=== PATIENT | male | born 1995 | race Two or more races ===

== ENCOUNTER 2019-11-04 16:40 | Emergency (ER) | payer SELFPAY ==
[~2019-11-04] VITALS: Ht 172.7 cm; Wt 104.3 kg
[2019-11-04 17:01] VITALS: BP 112/74
[2019-11-04] MEDS ORDERED: TETANUS-DIPTH-ACEL PERTUSSIS 0.5ML SYR Tdap IM ONE (17:30)
== END 2019-11-04 17:45 | disposition home or self-care (01) ==
LOC: ER 16:40
DX: S61.412A Laceration without foreign body of left hand, initial encounter (principal); W25.XXXA Contact with sharp glass, initial encounter; Y93.89 Activity, other specified; Y92.89 Other specified places as the place of occurrence of the external cause; Y99.8 Other external cause status
CPT/HCPCS: 12001; 90471; 90715

== ENCOUNTER 2019-12-02 20:00 | Emergency (ER) | payer SELFPAY ==
[~2019-12-02] VITALS: Ht 172.7 cm; Wt 99.8 kg
[2019-12-02 21:47] LABS: Basophils # (auto) 0 10 ^3/uL (0-0.2); Basophils % (auto) 0.5 % (0.0-2.0); Eosinophils # (auto) 0 10 ^3/uL (0-0.8); Eosinophils % (auto) 0.6 % (0.0-7.0); Hematocrit 47.1 % (41.0-53.0); Hemoglobin 15.9 g/dL (13.5-17.5); Lymphocytes # (auto) 3.1 10 ^3/uL (0.4-5.4); Lymphocytes % (auto) 47.5 % (10.0-50.0); Mean Corpuscular Hemoglobin 28.3 pg (28.0-32.0); Mean Corpuscular Hgb Conc. 33.7 g/dL (32.0-36.0); Mean Corpuscular Volume 84.1 fL (80.0-100.0); Monocytes # (auto) 0.8 10 ^3/uL (0-1.3); Monocytes % (auto) 11.8 % (0.0-12.0); Neutrophils # (auto) 2.6 10 ^3/uL (1.6-8.6); Neutrophils % (auto) 39.6 % (37.0-80.0); Nucleated Red Blood Cells % 0.1 %; Platelet Count (auto) 235 10^3/uL (140-450); Red Blood Cells 5.61 10^6/uL (4.5-5.90); Red Cell Distribution Width 13.2 % (11.8-14.3); White Blood Cell 6.5 10^3/uL (4.4-10.8)
[2019-12-02 22:15] VITALS: BP 133/77
== END 2019-12-02 22:20 | disposition home or self-care (01) ==
LOC: ER 20:02
DX: L03.114 Cellulitis of left upper limb (principal)
CPT/HCPCS: 36415; 73200; 85025

== ENCOUNTER 2022-06-25 23:19 | Emergency (ER) | payer SELFPAY ==
[~2022-06-25] VITALS: Ht 172.7 cm; Wt 106.0 kg
[2022-06-26] MEDS ORDERED: DexAMETHasone SOD PHOS 10MG/1ML VIAL INJ IM ONE (08:30)
[2022-06-26] MEDS ORDERED: PENICILLIN G BENZ 1200000 UNITS/2 ML SYRG IM ONE (08:30)
[2022-06-26] MEDS ORDERED: IBUP800T26 PO (08:39)
[2022-06-26] MEDS ORDERED: ACET-1158 PO (08:39)
[2022-06-26 09:35] VITALS: BP 160/95
== END 2022-06-26 09:40 | disposition home or self-care (01) ==
LOC: ER 23:19
DX: J02.0 Streptococcal pharyngitis (principal)
CPT/HCPCS: 87070; 87880; 96372; 99284; J0561; J1100